=== PATIENT | male | born 1965 | race Caucasian/White ===

== ENCOUNTER 2018-04-01 16:11 | Emergency (ER) | payer BC ==
--- NOTE | 2018-04-01 18:53 | EDM.PDOC ---
<Mario Kohler - Last Filed: 04/01/18 18:45> ED HPI GENERAL MEDICAL PROBLEM - General Chief Complaint: Neuro Symptoms/Deficits Stated Complaint: SENSATION IN BACK OF NECK Time Seen by Provider: 04/01/18 17:15 Source of Information: Reports: Patient, Family - History of Present Illness INITIAL COMMENTS - FREE TEXT/NARRATIVE: 53-year-old male without known significant medical problems presents with concerns of bizarre behavior. Very difficult to obtain history from the patient due to tangential and grandiose thinking. His family accompanies him today. By report of the family he was relatively well functioning while living in the company of his mother who last months. Since this time they've noticed an increase in nonsensical thinking. He repetitively writes in his bilateral. 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 When I talk with him he is perseverating around the of his mother and her eulogy. He has no history of psychiatric disease. He is on no medications. Headache Pain Score (Numeric/FACES): 2 - Related Data Allergies Allergy/AdvReac Type Severity Reaction Status Date / Time cetirizine [From Zyrtec] Allergy Other Verified 04/01/18 16:26 Home Meds: Home Meds NK [No Known Home Meds] 04/01/18 [History] Past Medical History HEENT History: Reports: Impaired Vision Gastrointestinal History: Reports: None Oncologic (Cancer) History: Reports: Basal Cell Carcinoma - Infectious Disease History Infectious Disease History: Reports: Chicken Pox - Past Surgical History Head Surgeries/Procedures: Reports: None HEENT Surgical History: Reports: None GI Surgical History: Reports: Cholecystectomy Oncologic Surgical History: Reports: None Social & Family History - Tobacco Use Smoking Status *Q: Never Smoker Second Hand Smoke Exposure: No - Caffeine Use Caffeine Use: Reports: Coffee - Recreational Drug Use Recreational Drug Use: No ED ROS GENERAL - Review of Systems Review Of Systems: See Below Constitutional: Reports: No Symptoms HEENT: Reports: No Symptoms Respiratory: Reports: No Symptoms Cardiovascular: Reports: No Symptoms Endocrine: Reports: No Symptoms GI/Abdominal: Reports: No Symptoms : Reports: No Symptoms Musculoskeletal: Reports: No Symptoms Skin: Reports: No Symptoms Neurological: Reports: No Symptoms Psychiatric: Reports: Other (bizzarre behavior) Immunologic: Reports: No Symptoms ED EXAM, NEURO - Physical Exam Exam: See Below Exam Limited By: No Limitations General Appearance: Alert Ears: Normal External Exam Nose: Normal Inspection Throat/Mouth: Normal Inspection Head Exam: Atraumatic, Normocephalic Respiratory/Chest: No Respiratory Distress Cardiovascular: Regular Rate, Rhythm GI/Abdominal: Normal Bowel Sounds, Soft, Non-Tender Neurological: Alert, Normal Mood/Affect, CN II-XII Intact Extremities: Normal Inspection Psychiatric: Other (Grandiose and tangential thoughts, does report the voice of God in his head.) Skin Exam: Warm, Dry Course - Vital Signs Last Recorded V/S: Last Vital Signs Temp 35.9 C 04/01/18 16:29 Pulse 99 04/01/18 17:53 Resp 16 04/01/18 17:39 BP 170/92 H 04/01/18 17:53 Pulse Ox 98 04/01/18 17:53 - Orders/Labs/Meds Orders: Active Orders 24 hr Category Date Time Status Head wo Cont [CT] Stat Exams 04/01/18 17:48 Taken Labs: Laboratory Tests 04/01/18 04/01/18 Range/Units 18:03 18:03 WBC 9.1 (4.5-11.0) K/uL RBC 4.77 (4.30-5.90) M/uL Hgb 16.0 H (12.0-15.0) g/dL Hct 46.0 (40.0-54.0) % MCV 96 (80-98) fL MCH 34 H (27-31) pg MCHC 35 (32-36) % Plt Count 237 (150-400) K/uL Sodium 139 L (140-148) mmol/L Potassium 4.0 (3.6-5.2) mmol/L Chloride 101 (100-108) mmol/L Carbon Dioxide 28 (21-32) mmol/L Anion Gap 14.0 (5.0-14.0) mmol/L BUN 10 (7-18) mg/dL Creatinine 0.8 (0.8-1.3) mg/dL Est Cr Clr Drug Dosing 114.51 mL/min Estimated GFR (MDRD) > 60 (>60) Glucose 107 H (74-106) mg/dL Calcium 9.6 (8.5-10.1) mg/dL - Re-Assessments/Exams Free Text/Narrative Re-Assessment/Exam: 53-year-old presents with bizarre behavior including auditory hallucinations of God, grandiose thinking, tangential thoughts. Report he does not have a history of psychiatric disease. Much of his behavior abnormalities of the, parents since the of his mother one month ago, question whether she was covering for much of his possible mental issues. He denies any suicidal or homicidal ideation. I do not believe that he is dangerous to self or others. Obtained a CT of the head and basic screening labs are unremarkable. He is not meningitic or encephalopathic, LP does not seem warranted I have offered to have crisis team evaluate him for possible underlying mental health disease, patient and family amendable to this. I believe he is ultimately safe to go home if crisis agrees. He was signed out to the oncoming MD at end of shift. 04/01/18 18:53 Departure - Departure Disposition: Home, Self-Care 01 Clinical Impression: Hypomania - Discharge Information Referrals: PCP,None [Primary Care Provider] - Forms: ED Department Discharge Additional Instructions: Follow-up with the counselor as planned. Your free to return to the emergency department at any time if needed. <Victoriano Hatch - Last Filed: 04/01/18 22:41> Course - Re-Assessments/Exams Free Text/Narrative Re-Assessment/Exam: 04/01/18 22:39 This man has been evaluated by the crisis counselor and she agrees that he does not need hospitalization. That was Dr. Kohler's impression also. The counselor is setting up outpatient counseling for the patient Departure - Departure Time of Disposition: 22:41 Condition: Fair
== END 2018-04-01 23:09 | disposition home or self-care (01) ==
LOC: JP.ED 16:11
DX: F30.8 Other manic episodes (principal); Z88.8 Allergy status to other drugs, medicaments and biological substances
CPT/HCPCS: 36415; 70450; 80048; 85027; 99284-25